=== PATIENT | female | born 1975 | race Caucasian/White ===

== ENCOUNTER → 2016-12-24 | Outpatient (CLI) | payer BC ==
[~2016-12-24] MED LIST: B12; OMEG10007 PO; PRENTAB26 PO
== END | disposition home or self-care (01) ==
LOC: C.PAPS 14:37
PROVIDERS: ATTEND Obstetrics & Gynecology
DX: Z01.419 Encounter for gynecological examination (general) (routine) without abnormal findings (principal)

== ENCOUNTER → 2017-01-08 | Outpatient (CLI) | payer BC ==
[~2017-01-08] MED LIST changes: +GADAVIST IV PRN
--- NOTE | 2017-01-08 13:13 | DIAGNOSTIC IMAGING REPORT ---
MRI OF THE BRAIN WITHOUT AND WITH IV CONTRAST CLINICAL HISTORY: Neuroblastoma COMPARISON STUDY: 11/23/2015 TECHNIQUE: MRI of the brain was performed from the vertex to the skull base utilizing various T1 and T2 weighted sequences. Following the IV administration of 5.5 mL of Gadavist contrast, additional enhanced images were obtained. FINDINGS: Sagittal T1, axial diffusion, proton density and T2 weighted axial, coronal FLAIR, and pre and post axial T1-weighted images were acquired. These were supplemented with post gadolinium coronal T1 weighted images. No intra or extra-axial mass lesions are visualized. Axial diffusion-weighted images reveal no evidence of acute or subacute infarction. There is no evidence of ventricular dilatation. Proton density T2-weighted and FLAIR images reveal no significant intraparenchymal signal abnormalities. There are no abnormal flow voids. There is a persistent tiny focus of enhancement involving the base of the right frontal lobe adjacent to the cribriform plate. There are postsurgical changes present within the maxillary sinuses, and nasal cavity. There is a persistent polypoid density within the sphenoid sinus with adjacent fluid. There is persistent enhancement involving the undersurface of the cribriform plate, similar to the preceding study. There is a persistent nodular focus of enhancement along the lateral aspect of the resected right ethmoid air cells. This measures 9 x 7 mm. This remain similar in size. This abuts the medial wall of the right orbit. There is a stable 7 mm nonenhancing nodule, immediately medial to this enhancing lesion. IMPRESSION: 1. No acute intracranial findings 2. Postoperative changes involving the paranasal sinuses and nasal cavity 3. Stable areas of thickening and enhancement along the undersurface of the cribriform plate, and lateral wall of the right ethmoid complex Electronically signed by: Rahat Garcia M.D. 01/08/2017 1:11 PM Dictated Date/Time: 01/08/2017 12:57 PM
== END | disposition home or self-care (01) ==
LOC: C.MRI 10:58
PROVIDERS: ATTEND Specialist
DX: C74.90 Malignant neoplasm of unspecified part of unspecified adrenal gland (principal)

== ENCOUNTER → 2017-01-13 | Outpatient (CLI) | payer BC ==
[~2017-01-13] MED LIST changes: -GADAVIST IV PRN
--- NOTE | 2017-01-14 14:42 | MAMMOGRAPHY REPORT ---
BILATERAL DIGITAL SCREENING MAMMOGRAM TOMOSYNTHESIS WITH CAD: 01/13/2017 CLINICAL HISTORY: Routine screening. Patient has no complaints. TECHNIQUE: Breast tomosynthesis in addition to standard 2D mammography was performed. Current study was also evaluated with a Computer Aided Detection (CAD) system. COMPARISON: Comparison is made to exams dated: 01/10/2016 mammogram and 12/27/2014 mammogram - [facility]. BREAST COMPOSITION: The tissue of both breasts is extremely dense, which lowers the sensitivity of mammography. FINDINGS: There are scattered benign-appearing microcalcifications bilaterally. There is a stable metallic biopsy marker in the lower inner quadrant of the right breast. No obvious new mass, archite ctural distortion or cluster of microcalcifications is seen. IMPRESSION: ACR BI-RADS CATEGORY 2: BENIGN There is no mammographic evidence of malignancy. A 1 year screening mammogram is recommended. The p atient will receive written notification of the results. Approximately 10% of breast cancers are not detected with mammography. A negative mammographic repor t should not delay biopsy if a clinically suggestive mass is present. Ama Nuñez M.D. ay/:01/13/2017 21:02:44 Miller First: Anita BOLDEN)(Tana), [facility] letter sent: Normal 1/2 BI-RADS Code: ACR BI-RADS Category 2: Benign
== END | disposition home or self-care (01) ==
LOC: C.MAMM 11:53
PROVIDERS: ATTEND Obstetrics & Gynecology
DX: Z12.31 Encounter for screening mammogram for malignant neoplasm of breast (principal)

== ENCOUNTER → 2018-01-07 | Outpatient (CLI) | payer OTHER ==
[~2018-01-07] MED LIST changes: +GADAVIST IV PRN
--- NOTE | 2018-01-07 11:43 | DIAGNOSTIC IMAGING REPORT ---
MRI OF THE BRAIN WITHOUT AND WITH IV CONTRAST CLINICAL HISTORY: Neuroblastoma. Follow-up study. COMPARISON STUDY: January 08, 2017. TECHNIQUE: MRI of the brain was performed from the vertex to the skull base utilizing various T1 and T2 weighted sequences. Following the IV administration of 6 mL of Gadavist contrast, additional enhanced images were obtained. FINDINGS: Sagittal T1, axial diffusion, proton density and T2 weighted axial, coronal FLAIR, and pre and post axial T1-weighted images were acquired. These were supplemented with post gadolinium coronal T1 weighted images. No intra or extra-axial mass lesions are visualized. Axial diffusion-weighted images reveal no evidence of acute or subacute infarction. There is no evidence of ventricular dilatation. Proton density T2-weighted and FLAIR images reveal no significant intraparenchymal signal abnormalities. There are no abnormal flow voids. There are postsurgical changes present within the maxillary sinus and nasal cavity. There is a persistent polypoid density within the sphenoid sinus with adjacent fluid. This measures 22 x 16 x 15 mm. There is persistent enhancement involving the undersurface the current point plate similar to the prior study. There is persistent nodular enhancement along the lateral aspect of the resected right-sided ethmoid air cells. There is a persistent 7 mm nonenhancing nodule located between the ethmoid sinus and the right orbit. IMPRESSION: 1. No acute intracranial findings 2. Postoperative changes involve the paranasal sinuses and nasal cavity 3. Stable areas of thickening and enhancement along the undersurface of the cribriform plate and lateral wall the right ethmoid complex 4. Stable nonenhancing 7 mm nodule located between the right ethmoid sinus the right orbit Electronically signed by: Rahat Garcia M.D. 01/07/2018 11:42 AM Dictated Date/Time: 01/07/2018 11:32 AM
== END | disposition home or self-care (01) ==
LOC: C.MRI 10:39
PROVIDERS: ATTEND Specialist
DX: C74.90 Malignant neoplasm of unspecified part of unspecified adrenal gland (principal)

== ENCOUNTER → 2018-05-11 | Outpatient (CLI) | payer OTHER ==
[~2018-05-11] MED LIST changes: -GADAVIST IV PRN
== END | disposition home or self-care (01) ==
LOC: C.PAPS 18:45
PROVIDERS: ATTEND Obstetrics & Gynecology
DX: Z12.4 Encounter for screening for malignant neoplasm of cervix (principal); R87.610 Atypical squamous cells of undetermined significance on cytologic smear of cervix (ASC-US)